=== PATIENT | male | born 1990 | race Caucasian/White ===

== ENCOUNTER 2024-06-28 06:29 | Emergency (ER) | payer MEDICAID, SELFPAY ==
[2024-06-28 06:30] VITALS: BMI 36.9
[2024-06-28 06:45] VITALS: BP 127/81; PULSE 118; RESP 19; TEMP 37.6; O2SAT 97
--- NOTE | 2024-06-28 07:11 | PD.EDURI ---
Upper Respiratory Inf. RME/HPI General Chief Complaint: Flu Like Symptoms Stated Complaint: FLU LIKE SYMPTOMS Time Seen by Provider: 06/28/24 06:35 Arrival date/time: 06/28/24 06:29 This is a 33-year-old male that comes in with complaints of cough, runny nose, congestion, headache for the past 4 days. Patient denies any past medical history. Related Data Previous Rx's ?Medication ?Instructions ?Recorded prednisone 20 mg tablet 60 mg (3 x 20 mg) PO QAM #21 tabs 04/21/17 valacyclovir 1 gram tablet 1,000 mg PO TID #21 tabs 04/21/17 (Valtrex) ibuprofen 800 mg tablet 800 mg PO Q6H PRN pain #10 tabs 06/28/24 Allergies Allergy/AdvReac Type Severity Reaction Status Date / Time NKA* Allergy Uncoded 10/24/21 09:46 Course Orders Category Date Time Status Acetaminophen Tab [Tylenol ES Tab] Med 06/28/24 07:12 Once 1,000 mg PO X1 ONE Ibuprofen Tab [Motrin Tab] Med 06/28/24 07:12 Once 800 mg PO X1 ONE Vital Signs Vital signs: Vital Signs Temperature 99.7 F 06/28/24 06:45 Pulse Rate 118 H 06/28/24 06:45 Respiratory Rate 19 06/28/24 06:45 Blood Pressure 127/81 06/28/24 06:45 Pulse Oximetry (%) 97 06/28/24 06:45 Oxygen Delivery Method Room Air 06/28/24 06:45 Upper Respiratory Infection Medications / Prescriptions Medication administrations:: Medication Administration History Acetaminophen (Acetaminophen 500 Mg Tablet) 1,000 mg PO X1 ONE Stop: 06/28/24 07:13 Ibuprofen (Ibuprofen Tab 400 Mg Tablet) 800 mg PO X1 ONE Stop: 06/28/24 07:13 Discharge Plan Plan Patient Disposition: HOME (Self Care) Patient condition on transfer: Stable Prescriptions/Referrals Prescriptions/Med Rec: New ibuprofen 800 mg tablet 800 mg PO Q6H PRN (Reason: pain) Qty: 10 0RF No Action valacyclovir [Valtrex] 1,000 MG tablet 1,000 mg PO TID Qty: 21 0RF prednisone 20 MG tablet 60 mg PO QAM Qty: 21 0RF Problem List Clinical Impression: Influenza A Patient/Caregiver Discharge Instructions Discharge Activity: activity as tolerated Education Materials: ED Influenza (Adult) Additional Instructions: Drink plenty of fluids. Get plenty of rest. Follow up with primary provider in 1-2 days. Come back to ED if symptoms change or worsen Print Language: Slovak Stand Alone Forms: Darya Award Info., Patient Portal Info Letter PA/SENIOR RESEARCH SCIENTIST Supervising Physician PA/SENIOR RESEARCH SCIENTIST Supervising Physician: [email or web address]
[2024-06-28] MEDS: IBUPROFEN TAB 400 MG TABLET 800 MG PO (07:33)
[2024-06-28] MEDS: ACETAMINOPHEN 500 MG TABLET 1000 MG PO (07:34)
== END 2024-06-28 19:54 | disposition home or self-care (01) ==
LOC: SERX 07:47
PROVIDERS: Emergency Provider Family Medicine
DX: J10.1 Influenza due to other identified influenza virus with other respiratory manifestations (principal)
CPT/HCPCS: 99282; A9270